=== PATIENT | male | born 1950 | race Caucasian/White ===

== ENCOUNTER 2017-01-26 11:23 | Emergency (ER) | payer MEDICARE ==
[2017-01-26] MEDS ORDERED: XYLOCAINE 1% HCL 20 ML MDV ONE (11:35)
[2017-01-26] MEDS ORDERED: BACIGUENT PACKET ONE (11:35)
[2017-01-26] MEDS ORDERED: BACIGUENT PACKET TP ONE (11:37)
[2017-01-26] MEDS ORDERED: Adacel Vial IM ONE ×2 (11:37→11:38)
[2017-01-26] MEDS ORDERED: XYLOCAINE 1% HCL 20 ML MDV IJ ONE (11:37)
--- NOTE | 2017-01-26 12:27 | ERPHSYRPT ---
- History of Present Illness Time Seen by Provider: 01/26/17 12:22 Source: patient, family Exam Limitations: no limitations Patient Subjective Stated Complaint: pt states he was cutting a potato and lacerated left ring finger. Triage Nursing Assessment: pt pink, warm, dry. lacedration noted to left ring finger tip. bleeding controlled. Physician History: Just prior to arrival the right handed 66-year-old male with his with cutting sweet potatoes and accidentally cut the tip of his left ring finger with a knife. He has no numbness or tingling. His last tetanus shot was more than 5 years ago. His past medical history is significant for hypertension. Timing/Duration: today Quality: other (lac) Severity: mild Location: hands (left ring finger) Possible Causes: other (knife) Associated Symptoms: other (lac) Allergies/Adverse Reactions: No Known Drug Allergies Allergy (Unverified 01/26/17 11:32) Home Medications: Losartan/Hydrochlorothiazide [Hyzaar 100-25 Tablet] 1 each PO DAILY 01/26/17 [ History] Hx Tetanus, Diphtheria Vaccination/Date Given: Yes (unknown) Hx Influenza Vaccination/Date Given: Yes Hx Pneumococcal Vaccination/Date Given: Yes Immunizations Up to Date: Yes - Review of Systems Constitutional: No Fever, No Chills Eyes: No Symptoms Ears, Nose, & Throat: No Symptoms Respiratory: No Cough, No Dyspnea Cardiac: No Chest Pain, No Edema, No Syncope Abdominal/Gastrointestinal: No Abdominal Pain, No Nausea, No Vomiting, No Diarrhea Genitourinary Symptoms: No Dysuria Musculoskeletal: No Back Pain, No Neck Pain Skin: Other (lac) Neurological: No Dizziness, No Focal Weakness, No Sensory Changes Psychological: No Symptoms Endocrine: No Symptoms Hematologic/Lymphatic: No Symptoms Immunological/Allergic: No Symptoms All Other Systems: Reviewed and Negative - Past Medical History Pertinent Past Medical History: Yes Cardiac History: Hypertension - Past Surgical History Past Surgical History: No - Social History Smoking Status: Current every day smoker How long have you smoked: 45 Exposure to second hand smoke: No Drug Use: none Patient Lives Alone: No - Nursing Vital Signs Nursing Vital Signs: Initial Vital Signs Temperature 97.5 F Temperature Source Oral Pulse Rate 96 Respiratory Rate 18 Blood Pressure [Right Arm] 134/82 Pain Intensity 0 - Physical Exam General Appearance: no apparent distress, alert Eye Exam: PERRL/EOMI, eyes nml inspection Ears, Nose, Throat Exam: normal ENT inspection, pharynx normal, moist mucous membranes Neck Exam: normal inspection, non-tender, supple, full range of motion Respiratory Exam: normal breath sounds, lungs clear, No respiratory distress Cardiovascular Exam: regular rate/rhythm, normal heart sounds Gastrointestinal/Abdomen Exam: soft, mass, No tenderness Rectal Exam: not done Back Exam: normal inspection, normal range of motion, No CVA tenderness, No vertebral tenderness Extremity Exam: normal inspection, normal range of motion Neurologic Exam: alert, oriented x 3, cooperative, normal mood/affect, sensation nml, No motor deficits Skin Exam: laceration (flap lac to distal left ring finger) SpO2 Interpretation: normal SpO2: 93 Oxygen Delivery: Room Air Procedures - Laceration/Wound Repair Left Distal Finger Wound Location: Left, hand (ring finger) Wound Length (cm): 2.5 Wound's Depth, Shape: superficial, flap Wound Explored: clean Irrigated: Yes Hibiclens Prep: Yes Anesthesia: digital block, 1% Lidocaine Volume Anesthetic (ccs): 10 Wound Debrided: minimal Wound Repaired With: sutures Suture Size/Type: 5-0, nylon Number of Sutures: 7 Layer Closure?: No Ordered Tests: Active Orders 24 hr Category Date Time Status Prepare for Sutures STAT Care 01/26/17 11:37 Active Sutures STAT Care 01/26/17 11:38 Active Wound Care STAT Care 01/26/17 11:37 Active Medication Summary Discontinued Medications Generic Name Dose Route Start Last Admin Trade Name Freq PRN Reason Stop Dose Admin Bacitracin 0.9 gm 01/26/17 11:37 01/26/17 11:39 Baciguent Packet TP 01/26/17 11:38 0.9 gm STAT ONE Administration Bacitracin Confirm 01/26/17 11:35 Baciguent Packet Administered 01/26/17 11:36 Dose 1 gm .ROUTE .STK-MED ONE Diphtheria/Tetanus/Acell Pertussis 0.5 ml 01/26/17 11:37 01/26/17 11:38 Adacel Vial IM 01/26/17 11:38 0.5 ml .ONCE ONE Administration Diphtheria/Tetanus/Acell Pertussis Confirm 01/26/17 11:38 Adacel Vial Administered 01/26/17 11:39 Dose 0.5 ml IM .STK-MED ONE Lidocaine HCl 5 ml 01/26/17 11:37 01/26/17 11:39 Xylocaine 1% Hcl 20 Ml Mdv IJ 01/26/17 11:38 5 ml STAT ONE Administration Lidocaine HCl Confirm 01/26/17 11:35 Xylocaine 1% Hcl 20 Ml Mdv Administered 01/26/17 11:36 Dose 5 ml .ROUTE .STK-MED ONE - Progress Progress: improved Counseled pt/family regarding: diagnosis, need for follow-up - Departure Time of Disposition: 12:26 Departure Disposition: Home Clinical Impression: Laceration Condition: Stable Critical Care Time: No Instructions: Care for a Laceration After Repair Additional Instructions: You have a laceration to the tip of her left ring finger that was closed with 7 sutures. The sutures need to be removed between 12 and 14 days. You were given a tetanus vaccination in the ER. Take Augmentin twice a day for 10 days. Prescriptions: Amoxicillin/Potassium Clav [Augmentin 875-125 Tablet] 875 mg PO BID #20 tablet
[2017-01-26 12:35] VITALS: BP 121/69; PULSE 86; O2SAT 98
== END 2017-01-26 12:34 | disposition home or self-care (01) ==
LOC: ED 11:23
PROC: 0HQGXZZ Repair Left Hand Skin, External Approach (ICD-10-PCS; principal; 2017-01-26)
DX: S61.215A Laceration without foreign body of left ring finger without damage to nail, initial encounter (principal); W26.0XXA Contact with knife, initial encounter
CPT/HCPCS: 12001; 90471; 90715; 99283; A9270-GY

== ENCOUNTER 2018-12-06 16:07 | Observation (INO) | payer MEDICARE ==
[2018-12-06] MEDS ORDERED: Sodium Chloride 0.9% 1000 ML 1,000 ML IV STA ×2 (16:28→20:01)
[2018-12-06] MEDS ORDERED: Zofran 4 MG/2 ML VIAL IV PRN (16:34)
[2018-12-06] MEDS ORDERED: TYLENOL 325 MG PO PRN (16:35)
[2018-12-06] MEDS ORDERED: Klor Con 10 MEQ PO ONE (16:45)
[2018-12-06] MEDS: Lactated Ringers 1,000 ML IV SCH (16:59)
--- NOTE | 2018-12-06 20:08 | PCM.HP ---
History of Present Illness - Chief Complaint Chief Complaint: DIAHRHEA, RENAL INSUF, HYPOKALEMIA History of Present Illness: is a 68 year old male pt of Dr. Saini with HTN and tob abuse who was admitted directly today with diarrhea,dehydration, acute renal injury, and leukocytosis. He started having diarrhea about 5d ago; had vomiting x 1, denies abdominal pain. He did have decreased urination and decreased po intake this week. He started feeling very weak and tired. He did go to on 12/04/18 and received IM dexamethasome for gastroenteritis. He started drinking pedialyte at home. He returned to today and looked ill to the [employer] so I was called and directly admitted the pt. His WBC were 16,000 with 13 bands and 73% neutrophils. Tbili 2.0. K+ 3.0. BUN 57 and Cr 1.78 for eGFR 40.5. No hx renal issues, no hx MN. He has received 1 L NS in a bolus and has fluids at 125cc /hr currently and is feeling somewhat better. As I have known the pt personally, I note that he has lost quite a bit of weight in the past year or two (used to be morbidly obese). 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 He also says that he stopped eating candy and drinking pop. He does note that he's lost more weight since this illness started. BMI today is 26.2. - Review of Systems Constitutional: Fever, Night Sweats Respiratory: Cough ("a little bit"), Short Of Breath ("a little bit" with current illness) Cardiac: No Chest Pain Abdominal/Gastrointestinal: Vomiting, Diarrhea, Appetite Changes Genitourinary Symptoms: Other (decr urination) Neurological: Dizziness (intermittently since starting his bp med) Psychological: Anxiety, No Depression, No Suicidal Ideations All Other Systems: Reviewed and Negative Medications & Allergies Home Medications: Home Medication List Losartan/Hydrochlorothiazide [Hyzaar 100-25 Tablet] 1 each PO DAILY 01/26/17 [ History Confirmed 12/06/18] Aspirin EC 81 mg [Ecotrin 81 mg] 81 mg PO DAILY 12/06/18 [History Confirmed 12/06/18] Allergies/Adverse Reactions: Allergies Allergy/AdvReac Type Severity Reaction Status Date / Time No Known Drug Allergies Allergy Unverified 01/26/17 11:32 - Past Medical History Past Medical History: Yes Neurological History: No Pertinent History ENT History: Cataracts Cardiac History: Hypertension Respiratory History: No Pertinent History Endocrine Medical History: No Pertinent History Musculoskelatal History: No Pertinent History GI Medical History: No Pertinent History History: No Pertinent History Pyscho-Social History: No Pertinent History Male Reproductive Disorders: No Pertinent History - Past Surgical History Past Surgical History: No Neuro Surgical History: No Pertinent History Cardiac History: No Pertinent History Respiratory Surgery: No Pertinent History GI Surgical History: No Pertinent History Genitourinary Surgical Hx: No Pertinent History Musculskeletal Surgical Hx: No Pertinent History Male Surgical History: No Pertinent History Other Surgical History: . - Social History Smoking Status: Current every day smoker How long have you smoked: 50 YEARS Exposure to second hand smoke: No Alcohol: Rarely, Occasionally Drug Use: none - Physical Exam Vital Signs: Vital Signs - 24 hr Temp Pulse Resp BP Pulse Ox 12/06/18 16:48 97.8 F 55 L 20 78/55 96 12/06/18 16:30 80/52 12/06/18 16:23 97.8 F 92 H 20 78/55 92 L General Appearance: no apparent distress, alert Neurologic Exam: oriented x 3, cooperative Eye Exam: eyes nml inspection Ears, Nose, Throat Exam: moist mucous membranes Neck Exam: normal inspection Respiratory Exam: normal breath sounds, lungs clear, No crackles/rales, No rhonchi, No wheezing Cardiovascular Exam: regular rate/rhythm, normal heart sounds, No murmur Gastrointestinal/Abdomen Exam: soft, normal bowel sounds, No tenderness, No distention, No mass, No guarding, No rebound Back Exam: normal inspection, No rash Extremity Exam: No pedal edema, No swelling Skin Exam: normal color, warm, dry, No rash Assessment/Plan (1) Diarrhea Current Visit: Yes Status: Acute Qualifiers: Diarrhea type: unspecified type Qualified Code(s): R19.7 - Diarrhea, unspecified Assessment & Plan: Will start pt on IV levaquin and flagyl for possible colitis. He is not having any pain, but WBC is elevated with bands present and pt is hypotensive. Code(s): R19.7 - DIARRHEA, UNSPECIFIED (2) Hypotension Current Visit: Yes Status: Acute Qualifiers: Hypotension type: other hypotension type Qualified Code(s): I95.89 - Other hypotension Assessment & Plan: due to fluid loss. Has received 1 L IV fluids - repeat. May need to repeat again. Rechecking electrolytes this evening. Code(s): I95.9 - HYPOTENSION, UNSPECIFIED (3) Leukocytosis Current Visit: Yes Status: Acute Qualifiers: Leukocytosis type: bandemia Qualified Code(s): D72.825 - Bandemia Code(s): D72.829 - ELEVATED WHITE BLOOD CELL COUNT, UNSPECIFIED (4) Acute renal injury Current Visit: Yes Status: Acute Assessment & Plan: recheck in a.m. Code(s): N17.9 - ACUTE KIDNEY FAILURE, UNSPECIFIED (5) HTN (hypertension) Current Visit: Yes Status: Acute Qualifiers: Hypertension type: essential hypertension Qualified Code(s): I10 - Essential (primary) hypertension Assessment & Plan: holding antihypertensive med Code(s): I10 - ESSENTIAL (PRIMARY) HYPERTENSION (6) Hypokalemia Current Visit: Yes Status: Acute Assessment & Plan: recheck this evening; with K+ 3.0 I did replete him orally. On telemetry. Code(s): E87.6 - HYPOKALEMIA (7) Hyperbilirubinemia Current Visit: Yes Status: Acute Assessment & Plan: recheck maira.m. Code(s): E80.6 - OTHER DISORDERS OF BILIRUBIN METABOLISM (8) Abnormal weight loss Current Visit: Yes Status: Chronic Assessment & Plan: will check tsh Code(s): R63.4 - ABNORMAL WEIGHT LOSS
[2018-12-06] MEDS ORDERED: Levofloxacin 500MG/100ML D5W 500 MG/100 ML BAG IV ONE (20:21)
[2018-12-06] MEDS: FLAGYL 500 MG IVPB 500 MG/100 ML BAG IV SCH (20:30)
[2018-12-06 21:09] LABS: Calcium 8.7 mg/dL (8.4-10.2); Creatinine 1 1.75 mg/dL (0.66-1.25); MAGNESIUM 2.8 mg/dL (1.6-2.3); Potassium 3.6 mmol/L (3.5-5.1); TSH, 3RD Generation 0.379 mIU/L (0.47-4.68)
[2018-12-07] MEDS: FLAGYL 500 MG IVPB 500 MG/100 ML BAG IV SCH ×2 (01:08→05:48)
[2018-12-07] MEDS ORDERED: Lactated Ringers 1,000 ML IV ONE (02:16)
[2018-12-07] MEDS: Lactated Ringers 1,000 ML IV SCH ×3 (02:17→20:05)
[2018-12-07 06:16] LABS: Basophil (Absolute #) 0 (0-0.4); Eosinophil % 0.1 % (0.00-5.0); Eosinophil (Absolute #) 0.01 (0-0.5); Granulocyte Absolute (ANC) 12.29 (1.4-6.9); Granulocytes % 92.9 % (36.0-66.0); Hematocrit 40.5 % (42-50); Hemoglobin 13.8 gm/dl (12.5-18.0); Lymphocyte (Absolute #) 0.27 (1.0-4.6); Mean Cell Volume 90.4 fl (78-100); Mean Corpuscular Hemoglobin 30.8 pg (26-32); Mean Corpuscular Hgb Concent. 34.1 g/dl (32-36); Mean Platelet Volume 10.4 fl (6-9.5); Monocyte (Absolute #) 0.66 (0.0-1.3); Platelet Count 228 K/mm3 (150-450); Red Blood Count 4.48 M/mm3 (4.1-5.6); Red Cell Distribution Width 14.3 % (11.5-14.0); White Blood Count 13.2 K/mm3 (4.0-10.5)
[2018-12-07 06:41] LABS: ALBUMIN 2.8 g/dL (3.5-5.0); ANION GAP 13.3 MEQ/L (5-15); BILIRUBIN,TOTAL 1.4 mg/dL (0.2-1.3); Calcium 8.6 mg/dL (8.4-10.2); Creatinine 1 1.34 mg/dL (0.66-1.25); Potassium 3.7 mmol/L (3.5-5.1); Total Protein 6.2 g/dL (6.3-8.2)
[2018-12-07 07:15] LABS: Slide Review 1 YES
[2018-12-07] MEDS ORDERED: Sodium Chloride 0.9% 500 ML 500 ML IV ONE (07:21)
--- NOTE | 2018-12-07 08:21 | XRAY ---
Indication: Cough. Comparison: None 2 views of the abdomen demonstrates scattered nonspecific nonobstructed bowel gas pattern. No focal bowel dilatation or free air. 5 mm nonobstructing left lower renal calculus and calcified splenic granulomas. Remaining solid organs are unremarkable. Osseous structures intact with moderate degenerative changes throughout the thoracolumbar spine and both hips. Single AP chest demonstrates right upper lobe consolidating airspace disease. Remaining heart and left lung unremarkable with incidental calcified granulomas. Bony thorax intact with degenerative changes. Impression: 1. Right upper lobe consolidating airspace disease. 2. Nonobstructing left renal microcalculus and evidence for old granulomatous disease.
[2018-12-07] MEDS: Klor Con 10 MEQ PO SCH (09:56)
[2018-12-07] MEDS ORDERED: Levofloxacin 500MG/100ML D5W 500 MG/100 ML BAG IV SCH ×2 (10:00→22:00)
--- NOTE | 2018-12-07 11:02 | PCM.NOTE ---
Date and Time: 12/07/18 1057 Subjective Assessment: Pt is feeling better. Sam po - would like to increase his diet. His CXR yesterday revealed RUL consolidation. - Review of Systems Constitutional: No Fever Abdominal/Gastrointestinal: No Diarrhea Objective Exam General Appearance: no apparent distress, alert Neurologic Exam: oriented x 3, cooperative Skin Exam: normal color, warm, dry, No rash Eye Exam: eyes nml inspection Respiratory Exam: normal breath sounds, rhonchi (RUL), No crackles/rales, No wheezing Cardiovascular Exam: regular rate/rhythm, normal heart sounds, No murmur Gastrointestinal/Abdomen Exam: soft, normal bowel sounds, No tenderness, No distention, No mass, No guarding, No rebound Extremity Exam: normal inspection, No pedal edema, No swelling Back Exam: normal inspection, No rash OBJECTIVE DATA Vital Signs: Vital Signs - 24 hr Temp Pulse Resp BP Pulse Ox 12/07/18 07:32 98.2 F 87 20 92/60 95 12/07/18 04:00 98.4 F 88 18 99/55 96 12/07/18 00:20 98.2 F 93 H 18 90/59 94 L 12/06/18 20:00 97.6 F 90 18 88/52 95 12/06/18 16:48 97.8 F 55 L 20 78/55 96 12/06/18 16:30 80/52 12/06/18 16:23 97.8 F 92 H 20 78/55 92 L Pain Assessment - Last Documented Pain Intensity 0 Pain Scale Used 0-10 Pain Scale Intake and Output: Intake & Output 12/04/18 12/05/18 12/06/18 12/07/18 11:59 11:59 11:59 11:59 Intake Total 4540 Output Total 550 Balance 3990 Weight 85.8 kg Lab Results: Lab Results-Last 24 Hours 12/06/18 12/07/18 12/07/18 Range/Units 20:16 05:00 05:25 WBC 13.2 H (4.0-10.5) K/mm3 RBC 4.48 (4.1-5.6) M/mm3 Hgb 13.8 (12.5-18.0) gm/dl Hct 40.5 L (42-50) % MCV 90.4 (78-100) fl MCH 30.8 (26-32) pg MCHC 34.1 (32-36) g/dl RDW 14.3 H (11.5-14.0) % Plt Count 228 (150-450) K/mm3 MPV 10.4 H (6-9.5) fl Gran % 92.9 H (36.0-66.0) % Eos # (Auto) 0.01 (0-0.5) Absolute Lymphs (auto) 0.27 L (1.0-4.6) Absolute Monos (auto) 0.66 (0.0-1.3) Lymphocytes % 2.0 L (24.0-44.0) % Monocytes % 5.0 (0.0-12.0) % Eosinophils % 0.1 (0.00-5.0) % Basophils % 0.0 (0.0-0.4) % Absolute Granulocytes 12.29 H (1.4-6.9) Basophils # 0 (0-0.4) Sodium 138 (137-145) mmol/L Potassium 3.6 (3.5-5.1) mmol/L Chloride 99 (98-107) mmol/L Carbon Dioxide 31 H (22-30) mmol/L Anion Gap 12.0 (5-15) MEQ/L BUN 64 H (9-20) mg/dL Creatinine 1.75 H (0.66-1.25) mg/dL Estimated GFR 41.3 ML/MIN Glucose 102 (74-106) mg/dL Calcium 8.7 (8.4-10.2) mg/dL Magnesium 2.8 H (1.6-2.3) mg/dL Total Bilirubin (0.2-1.3) mg/dL AST (17-59) U/L ALT (0-50) U/L Alkaline Phosphatase (38-126) U/L Serum Total Protein (6.3-8.2) g/dL Albumin (3.5-5.0) g/dL Free T4 2.33 H (0.76-1.46) ng/dL TSH 3rd Generation 0.379 L (0.47-4.68) mIU/L Slides for Path Review YES 12/07/18 Range/Units 05:25 WBC (4.0-10.5) K/mm3 RBC (4.1-5.6) M/mm3 Hgb (12.5-18.0) gm/dl Hct (42-50) % MCV (78-100) fl MCH (26-32) pg MCHC (32-36) g/dl RDW (11.5-14.0) % Plt Count (150-450) K/mm3 MPV (6-9.5) fl Gran % (36.0-66.0) % Eos # (Auto) (0-0.5) Absolute Lymphs (auto) (1.0-4.6) Absolute Monos (auto) (0.0-1.3) Lymphocytes % (24.0-44.0) % Monocytes % (0.0-12.0) % Eosinophils % (0.00-5.0) % Basophils % (0.0-0.4) % Absolute Granulocytes (1.4-6.9) Basophils # (0-0.4) Sodium 140 (137-145) mmol/L Potassium 3.7 (3.5-5.1) mmol/L Chloride 102 (98-107) mmol/L Carbon Dioxide 28 (22-30) mmol/L Anion Gap 13.3 (5-15) MEQ/L BUN 61 H (9-20) mg/dL Creatinine 1.34 H (0.66-1.25) mg/dL Estimated GFR 56.2 ML/MIN Glucose 83 (74-106) mg/dL Calcium 8.6 (8.4-10.2) mg/dL Magnesium (1.6-2.3) mg/dL Total Bilirubin 1.40 H (0.2-1.3) mg/dL AST 58 (17-59) U/L ALT 52 H (0-50) U/L Alkaline Phosphatase 89 (38-126) U/L Serum Total Protein 6.2 L (6.3-8.2) g/dL Albumin 2.8 L (3.5-5.0) g/dL Free T4 (0.76-1.46) ng/dL TSH 3rd Generation (0.47-4.68) mIU/L Slides for Path Review Radiology Exams: Radiology Procedures Category Date Time Status OBSTR/ACUTE ABDOMEN SERIES Routine Exams 12/06/18 06:00 Completed Assessment/Plan (1) Pneumonia Current Visit: Yes Status: Acute Qualifiers: Pneumonia type: due to unspecified organism Laterality: right Lung location: upper lobe of lung Qualified Code(s): J18.1 - Lobar pneumonia, unspecified organism Assessment & Plan: On levaquin and flagyl day #2. Since there is now an obvious reason for the leukocytosis, will discontinue the flagyl and continue the levaquin. Code(s): J18.9 - PNEUMONIA, UNSPECIFIED ORGANISM (2) Hypotension Current Visit: Yes Status: Acute Qualifiers: Hypotension type: other hypotension type Qualified Code(s): I95.89 - Other hypotension Assessment & Plan: Much better. BP in the 90s systolic. Possibly pt's recent weight loss could negate the need for antihypertensives. Will continue to hold BP med for now. Code(s): I95.9 - HYPOTENSION, UNSPECIFIED (3) Diarrhea Current Visit: Yes Status: Resolved Qualifiers: Diarrhea type: unspecified type Qualified Code(s): R19.7 - Diarrhea, unspecified Code(s): R19.7 - DIARRHEA, UNSPECIFIED (4) Leukocytosis Current Visit: Yes Status: Acute Qualifiers: Leukocytosis type: bandemia Qualified Code(s): D72.825 - Bandemia Assessment & Plan: improved from 16.8 to 13.2 this morning, with no bands (previously had 13 bands) . Code(s): D72.829 - ELEVATED WHITE BLOOD CELL COUNT, UNSPECIFIED (5) Acute renal injury Current Visit: Yes Status: Acute Assessment & Plan: Improved; eGFR no 56.2, from 41.3 yesterday. Continue IV fluids. States he is urinating well now. Code(s): N17.9 - ACUTE KIDNEY FAILURE, UNSPECIFIED (6) HTN (hypertension) Current Visit: Yes Status: Chronic Qualifiers: Hypertension type: essential hypertension Qualified Code(s): I10 - Essential (primary) hypertension Code(s): I10 - ESSENTIAL (PRIMARY) HYPERTENSION (7) Hypokalemia Current Visit: Yes Status: Resolved Code(s): E87.6 - HYPOKALEMIA (8) Hyperbilirubinemia Current Visit: Yes Status: Acute Assessment & Plan: Improved - was 2.0 yesterday, 1.4 today. Code(s): E80.6 - OTHER DISORDERS OF BILIRUBIN METABOLISM (9) Abnormal weight loss Current Visit: Yes Status: Chronic Assessment & Plan: TSh is low - checking free T4 and total T3. However, may be affected by his acute illness. Code(s): R63.4 - ABNORMAL WEIGHT LOSS
[2018-12-07] MEDS: ENOXAPARIN SODIUM SQ SCH (12:54)
[2018-12-07] MEDS ORDERED: Levofloxacin 500MG/100ML D5W 500 MG/100 ML BAG IV ONE (19:56)
[2018-12-08] MEDS: Lactated Ringers 1,000 ML IV SCH (05:04)
[2018-12-08 06:01] LABS: Hematocrit 39.6 % (42-50); Hemoglobin 13.1 gm/dl (12.5-18.0); Mean Cell Volume 91.2 fl (78-100); Mean Corpuscular Hemoglobin 30.2 pg (26-32); Mean Corpuscular Hgb Concent. 33.1 g/dl (32-36); Mean Platelet Volume 10.3 fl (6-9.5); Platelet Count 253 K/mm3 (150-450); Red Blood Count 4.34 M/mm3 (4.1-5.6); Red Cell Distribution Width 14.6 % (11.5-14.0); White Blood Count 8.4 K/mm3 (4.0-10.5)
[2018-12-08 06:38] LABS: ALBUMIN 2.5 g/dL (3.5-5.0); ALKALINE PHOSPHATASE 93 U/L (38-126); ANION GAP 10.5 MEQ/L (5-15); BLOOD UREA NITROGEN 41 mg/dL (9-20); CHLORIDE 103 mmol/L (98-107); Calcium 8.6 mg/dL (8.4-10.2); Carbon Dioxide 32 mmol/L (22-30); Creatinine 1 0.97 mg/dL (0.66-1.25); Glucose 79 mg/dL (74-106); Potassium 4.1 mmol/L (3.5-5.1); SGOT/AST 74 U/L (17-59); SGPT/ALT 65 U/L (0-50); SODIUM 141 mmol/L (137-145); Total Protein 5.8 g/dL (6.3-8.2)
[2018-12-08 06:44] LABS: Platelet Estimate NORMAL (NORMAL); Total Cells Counted 100
[2018-12-08 06:51] LABS: Lymphocytes 4 % (24-44); Neutrophils 89 % (36.-66.)
[2018-12-08 06:52] LABS: BAND 3 % (0.0-2.0); Eosinophil 1 % (0.00-3.0); Monocyte 3 % (0.0-12.0); Toxic Granulation 1+
[2018-12-08 06:53] LABS: ANISOCYTOSIS 1+
[2018-12-08 08:19] VITALS: O2SAT 94
[2018-12-08] MEDS: Klor Con 10 MEQ PO SCH (09:32)
[2018-12-08] MEDS: ENOXAPARIN SODIUM SQ SCH (09:33)
--- NOTE | 2018-12-08 12:57 | PCM.DS ---
Discharge Summary Date of Admission: 12/06/18 16:07 Admitting Physician: BRYN BROWN Primary Care Provider: LICO LY Allergies Allergies No Known Drug Allergies Allergy (Unverified 01/26/17 11:32) Hospital Summary - Hospital Course Hospital Course: Last Vital Signs Temp 97.8 F 12/08/18 08:00 Pulse 69 12/08/18 08:00 Resp 18 12/08/18 08:00 BP 107/64 12/08/18 08:00 Pulse Ox 94 L 12/08/18 08:00 Allergies No Known Drug Allergies Allergy (Unverified 01/26/17 11:32) Active Medications Acetaminophen (Tylenol 325 Mg) 650 mg PO Q4H PRN PRN PRN Reason: PAIN AND/OR FEVER Stop: 01/05/19 16:34 Enoxaparin Sodium (Enoxaparin Sodium) 40 mg SQ DAILY WALE Stop: 01/06/19 11:59 Last Admin: 12/08/18 09:33 Dose: 40 mg Lactated Ringer's (Lactated Ringers) 1,000 mls @ 125 mls/hr IV .Q8H WALE Stop: 01/05/19 16:29 Last Admin: 12/08/18 05:04 Dose: 125 mls/hr Levofloxacin/Dextrose (Levofloxacin 500mg/100ml D5w) 500 mg in 100 mls @ 100 mls/hr IV QPM WALE Stop: 01/06/19 09:59 Last Admin: 12/07/18 21:23 Dose: 100 mls/hr Potassium Chloride (Klor Con 10 Meq) 20 meq PO DAILY WALE Stop: 01/06/19 09:59 Last Admin: 12/08/18 09:32 Dose: 20 meq Intake & Output 12/08/18 12/09/18 11:59 11:59 Intake Total 3560 Output Total 2850 Balance 710 Weight 91.1 kg Lab Tests 12/08/18 12/08/18 05:06 05:06 WBC 8.4 RBC 4.34 Hgb 13.1 Hct 39.6 L MCV 91.2 MCH 30.2 MCHC 33.1 RDW 14.6 H Plt Count 253 MPV 10.3 H Segmented Neutrophils 89 H Band Neutrophils 3 H Lymphocytes (Manual) 4 L Monocytes (Manual) 3 Eosinophils (Manual) 1 Atypical Lymphocytes Toxic Granulation 1+ Platelet Estimate NORMAL RBC Morphology ABNORMAL Anisocytosis 1+ Sodium 141 Potassium 4.1 Chloride 103 Carbon Dioxide 32 H Anion Gap 10.5 BUN 41 H Creatinine 0.97 Estimated GFR > 60.0 Glucose 79 Calcium 8.6 Total Bilirubin 1.10 AST 74 H ALT 65 H Alkaline Phosphatase 93 Serum Total Protein 5.8 L Albumin 2.5 L Microbiology 12/06/18 16:39 Blood Blood Culture - Preliminary NO GROWTH TO DATE 12/06/18 14:30 Blood Blood Culture - Preliminary NO GROWTH TO DATE - Vitals & Intake/Output Vital Signs: Vital Signs Temperature 97.8 F 12/08/18 08:00 Pulse Rate 69 12/08/18 08:00 Respiratory Rate 18 12/08/18 08:00 Blood Pressure 107/64 12/08/18 08:00 O2 Sat by Pulse Oximetry 94 L 12/08/18 08:00 Intake & Output: Intake & Output 12/06/18 12/07/18 12/08/18 12/09/18 11:59 11:59 11:59 11:59 Intake Total 4660 3560 Output Total 950 2850 Balance 3710 710 Weight 85.8 kg 91.1 kg - Lab Result Diagrams: 12/08/18 05:06 12/08/18 05:06 Lab Results-Last 24 Hrs: Lab Results-Last 24 Hours 12/08/18 12/08/18 Range/Units 05:06 05:06 WBC 8.4 (4.0-10.5) K/mm3 RBC 4.34 (4.1-5.6) M/mm3 Hgb 13.1 (12.5-18.0) gm/dl Hct 39.6 L (42-50) % MCV 91.2 (78-100) fl MCH 30.2 (26-32) pg MCHC 33.1 (32-36) g/dl RDW 14.6 H (11.5-14.0) % Plt Count 253 (150-450) K/mm3 MPV 10.3 H (6-9.5) fl Segmented Neutrophils 89 H (36.-66.) % Band Neutrophils 3 H (0.0-2.0) % Lymphocytes (Manual) 4 L (24-44) % Monocytes (Manual) 3 (0.0-12.0) % Eosinophils (Manual) 1 (0.00-3.0) % Atypical Lymphocytes % Toxic Granulation 1+ Platelet Estimate NORMAL (NORMAL) RBC Morphology ABNORMAL Anisocytosis 1+ Sodium 141 (137-145) mmol/L Potassium 4.1 (3.5-5.1) mmol/L Chloride 103 (98-107) mmol/L Carbon Dioxide 32 H (22-30) mmol/L Anion Gap 10.5 (5-15) MEQ/L BUN 41 H (9-20) mg/dL Creatinine 0.97 (0.66-1.25) mg/dL Estimated GFR > 60.0 ML/MIN Glucose 79 (74-106) mg/dL Calcium 8.6 (8.4-10.2) mg/dL Total Bilirubin 1.10 (0.2-1.3) mg/dL AST 74 H (17-59) U/L ALT 65 H (0-50) U/L Alkaline Phosphatase 93 (38-126) U/L Serum Total Protein 5.8 L (6.3-8.2) g/dL Albumin 2.5 L (3.5-5.0) g/dL Micro Results-Entire Visit: Microbiology 12/06/18 16:39 Blood Culture - Preliminary Blood NO GROWTH TO DATE 12/06/18 14:30 Blood Culture - Preliminary Blood NO GROWTH TO DATE Discharge Exam General Appearance: no apparent distress, alert Neurologic Exam: alert, oriented x 3, cooperative, normal mood/affect, nml cerebellar function, sensation nml, No motor deficits Skin Exam: normal color, warm, dry Eye Exam: PERRL, EOMI, eyes nml inspection Ears, Nose, Throat Exam: normal ENT inspection, pharynx normal, moist mucous membranes Neck Exam: normal inspection, non-tender, supple, full range of motion Respiratory Exam: diminished breath sounds, rhonchi, No respiratory distress Cardiovascular Exam: regular rate/rhythm, normal heart sounds Gastrointestinal/Abdomen Exam: soft, No tenderness, No mass Extremity Exam: normal inspection, normal range of motion Back Exam: normal inspection, normal range of motion, No CVA tenderness, No vertebral tenderness Male Genitalia Exam: deferred Rectal Exam: deferred Final Diagnosis/Problem List - Final Discharge Diagnosis/Problem (1) Pneumonia Current Visit: Yes Status: Acute Assessment & Plan: Last Vital Signs Temp 97.8 F 12/08/18 08:00 Pulse 69 12/08/18 08:00 Resp 18 12/08/18 08:00 BP 107/64 12/08/18 08:00 Pulse Ox 94 L 12/08/18 08:00 Allergies No Known Drug Allergies Allergy (Unverified 01/26/17 11:32) Active Medications Acetaminophen (Tylenol 325 Mg) 650 mg PO Q4H PRN PRN PRN Reason: PAIN AND/OR FEVER Stop: 01/05/19 16:34 Enoxaparin Sodium (Enoxaparin Sodium) 40 mg SQ DAILY WALE Stop: 01/06/19 11:59 Last Admin: 12/08/18 09:33 Dose: 40 mg Lactated Ringer's (Lactated Ringers) 1,000 mls @ 125 mls/hr IV .Q8H WALE Stop: 01/05/19 16:29 Last Admin: 12/08/18 05:04 Dose: 125 mls/hr Levofloxacin/Dextrose (Levofloxacin 500mg/100ml D5w) 500 mg in 100 mls @ 100 mls/hr IV QPM WALE Stop: 01/06/19 09:59 Last Admin: 12/07/18 21:23 Dose: 100 mls/hr Potassium Chloride (Klor Con 10 Meq) 20 meq PO DAILY WALE Stop: 01/06/19 09:59 Last Admin: 12/08/18 09:32 Dose: 20 meq Intake & Output 12/08/18 12/09/18 11:59 11:59 Intake Total 3560 Output Total 2850 Balance 710 Weight 91.1 kg Lab Tests 12/08/18 12/08/18 05:06 05:06 WBC 8.4 RBC 4.34 Hgb 13.1 Hct 39.6 L MCV 91.2 MCH 30.2 MCHC 33.1 RDW 14.6 H Plt Count 253 MPV 10.3 H Segmented Neutrophils 89 H Band Neutrophils 3 H Lymphocytes (Manual) 4 L Monocytes (Manual) 3 Eosinophils (Manual) 1 Atypical Lymphocytes Toxic Granulation 1+ Platelet Estimate NORMAL RBC Morphology ABNORMAL Anisocytosis 1+ Sodium 141 Potassium 4.1 Chloride 103 Carbon Dioxide 32 H Anion Gap 10.5 BUN 41 H Creatinine 0.97 Estimated GFR > 60.0 Glucose 79 Calcium 8.6 Total Bilirubin 1.10 AST 74 H ALT 65 H Alkaline Phosphatase 93 Serum Total Protein 5.8 L Albumin 2.5 L Microbiology 12/06/18 16:39 Blood Blood Culture - Preliminary NO GROWTH TO DATE 12/06/18 14:30 Blood Blood Culture - Preliminary NO GROWTH TO DATE Code(s): J18.9 - PNEUMONIA, UNSPECIFIED ORGANISM (2) HTN (hypertension) Current Visit: Yes Status: Chronic Code(s): I10 - ESSENTIAL (PRIMARY) HYPERTENSION (3) Diarrhea Current Visit: Yes Status: Resolved Code(s): R19.7 - DIARRHEA, UNSPECIFIED (4) Hypokalemia Current Visit: Yes Status: Resolved Code(s): E87.6 - HYPOKALEMIA - Discharge Discharge Date: 12/08/18 Disposition: Home, Self-Care Condition: Stable Prescriptions: No Action Losartan/Hydrochlorothiazide [Hyzaar 100-25 Tablet] 1 each PO DAILY Aspirin EC 81 mg [Ecotrin 81 mg] 81 mg PO DAILY Follow up with: LICO LY MD [Primary Care Provider] - 12/15/18 10:15 am
[2018-12-08 13:53] VITALS: BP 118/70; PULSE 78
== END 2018-12-08 13:51 | disposition home or self-care (01) ==
LOC: MED SURG 16:07
PROVIDERS: ADMIT Family Medicine; ATTEND General Practice
DX: J18.9 Pneumonia, unspecified organism (principal); I10 Essential (primary) hypertension; R19.7 Diarrhea, unspecified; E87.6 Hypokalemia; E86.0 Dehydration; F17.200 Nicotine dependence, unspecified, uncomplicated; N17.9 Acute kidney failure, unspecified; D72.829 Elevated white blood cell count, unspecified; Z79.899 Other long term (current) drug therapy; R42 Dizziness and giddiness; I95.89 Other hypotension; E80.6 Other disorders of bilirubin metabolism; R63.4 Abnormal weight loss
CPT/HCPCS: 36415; 74022; 80048; 80053; 83735; 84439; 84443; 84480; 85025; 87040; 93268; G0378; J1650; J1956; A9270-GY

== ENCOUNTER 2021-11-29 03:24 | Emergency (ER) | payer MEDICARE ==
--- NOTE | 2021-11-29 03:54 | ERPHSYRPT ---
- History of Present Illness Historian: patient Exam Limitations: no limitations Patient Subjective Stated Complaint: stomach ache Triage Nursing Assessment: pt c/o a stomach ache which occured around 2330 after eating some cookies. Pt has nausea but not vomiting. Abd is firm with hyperactive bs x4 quad, nontender. Pt had large bm at 0200. Pt afebrile. Pt denies any c/p or sob. Timing/Duration: yesterday Activities at Onset: none Quality: sharpness, stabbing Abdominal Pain Onset Location: generalized abdomen Pain Radiation: no radiation Severity of Pain-Max: moderate Severity of Pain-Current: moderate Modifying Factors: Improves With: nothing Associated Symptoms: denies symptoms Previous symptoms: no prior history Hx Tetanus, Diphtheria Vaccination/Date Given: Yes Hx Influenza Vaccination/Date Given: Yes Hx Pneumococcal Vaccination/Date Given: Yes Immunizations Up to Date: Yes - History of Present Illness Time Seen by Provider: 11/29/21 03:50 Physician History: This is a 71 y/o white male patient of Dr. Ly who presents with abd pain onset relatively sudden mid abd at 2330 last pm. he had eaten cookies just prior to pain. pain is sharp and nonradiating. no n/v/d. denies cp and denies sob. never had anything like this before. no prior abd surgeries. pt had a large bm at 0200 this am without relief of pain. patient has never had a colonscopy. denies changes in his bms recently. current qd smoker of cigarettes. 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: [employer] - Vaccination Dates Date of 2cond Vaccination (if applicable): 2/27/21 - Review of Systems Constitutional: No Symptoms Eyes: No Symptoms Ears, Nose, & Throat: No Symptoms Respiratory: No Symptoms Cardiac: No Symptoms Abdominal/Gastrointestinal: Abdominal Pain Genitourinary Symptoms: No Symptoms Musculoskeletal: No Symptoms Skin: No Symptoms Neurological: No Symptoms Psychological: No Symptoms Endocrine: No Symptoms Hematologic/Lymphatic: No Symptoms Immunological/Allergic: No Symptoms - Past Medical History Pertinent Past Medical History: Yes Neurological History: No Pertinent History ENT History: No Pertinent History Cardiac History: Hypertension Respiratory History: No Pertinent History Endocrine Medical History: No Pertinent History Musculoskeletal History: No Pertinent History GI Medical History: No Pertinent History History: No Pertinent History Psycho-Social History: No Pertinent History Male Reproductive Disorders: No Pertinent History - Past Surgical History Past Surgical History: Yes Neuro Surgical History: No Pertinent History Cardiac: No Pertinent History Respiratory: No Pertinent History Gastrointestinal: No Pertinent History Genitourinary: No Pertinent History Musculoskeletal: No Pertinent History Male Surgical History: No Pertinent History Other Surgical History: . - Social History Smoking Status: Current every day smoker How long have you smoked: 50 yrs Exposure to second hand smoke: No Drug Use: none Patient Lives Alone: Yes - Physical Exam General Appearance: no apparent distress, alert, anxiety Eye Exam: PERRL/EOMI, eyes nml inspection Ears, Nose, Throat Exam: normal ENT inspection, moist mucous membranes Neck Exam: normal inspection, non-tender, supple, full range of motion Respiratory Exam: normal breath sounds, lungs clear, No chest tenderness, No respiratory distress Cardiovascular Exam: regular rate/rhythm, normal heart sounds, normal peripheral pulses Gastrointestinal/Abdomen Exam: soft, normal bowel sounds, tenderness, guarding, No pulsatile mass, No rebound Rectal Exam: not done Back Exam: normal inspection, normal range of motion, No CVA tenderness Extremity Exam: normal inspection, normal range of motion, pelvis stable Neurologic Exam: alert, oriented x 3, cooperative, 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 nml as tested, normal mood/affect, nml cerebellar function, nml station & gait, sensation nml Skin Exam: normal color, warm, dry Lymphatic Exam: No adenopathy SpO2 Interpretation: normal SpO2: 96 O2 Delivery: Room Air - Nursing Vital Signs Nursing Vital Signs: Initial Vital Signs Temperature 97.3 F 11/29/21 03:41 Pulse Rate 66 11/29/21 03:41 Respiratory Rate 18 11/29/21 03:41 Blood Pressure 151/84 11/29/21 03:41 O2 Sat by Pulse Oximetry 96 11/29/21 03:41 Pain Scale Pain Intensity 0 - Course Nursing assessment & vital signs reviewed: Yes EKG Interpreted by Me: RATE (67), Sinus Rhythm, NORMAL AXIS, Right Bundle Branch Block, NORMAL ST-T, Other (prolonged pr interval) Ordered Tests: Active Orders 24 hr Category Date Time Status IV Insertion STAT Care 11/29/21 03:54 Active ABDOMEN AND PELVIS W/0 CONTRAS [CT] Stat Exams 11/29/21 03:55 Taken Ultrasound Gallbladder [GALLBLADDER] [US] Stat Exams 11/29/21 07:33 Ordered AMYLASE Stat Lab 11/29/21 04:01 Completed CBC W DIFF Stat Lab 11/29/21 04:01 Completed CMP Stat Lab 11/29/21 04:01 Completed CULTURE,URINE Stat Lab 11/29/21 05:37 Received LIPASE Stat Lab 11/29/21 04:01 Completed Lactic Acid Stat Lab 11/29/21 04:11 Completed Lactic Acid Stat Lab 11/29/21 06:17 Completed Medication Summary Discontinued Medications Generic Name Dose Route Start Last Admin Trade Name Freq PRN Reason Stop Dose Admin Hydromorphone HCl 1 mg 11/29/21 04:14 11/29/21 04:16 Hydromorphone 1 Mg/1ml Inj 1 Mg/Ml Syringe IV 11/29/21 04:15 1 mg STAT ONE Administration Hydromorphone HCl Confirm 11/29/21 04:15 Hydromorphone 1 Mg/1ml Inj 1 Mg/Ml Syringe Administered 11/29/21 04:16 Dose 1 mg .ROUTE .STK-MED ONE Sodium Chloride 1,000 mls @ 999 mls/hr 11/29/21 04:44 11/29/21 05:57 Sodium Chloride 0.9% 1000 Ml IV 11/29/21 05:44 Infused .Q1H1M STA Infusion Sodium Chloride Confirm 11/29/21 04:54 Sodium Chloride 0.9% 1000 Ml Administered 11/29/21 04:55 Dose 1,000 mls @ ud .ROUTE .STK-MED ONE Ondansetron HCl 4 mg 11/29/21 03:54 11/29/21 04:00 Ondansetron Hcl 4 Mg/2 Ml Vial IV 11/29/21 03:55 4 mg STAT ONE Administration Ondansetron HCl Confirm 11/29/21 03:59 Ondansetron Hcl 4 Mg/2 Ml Vial Administered 11/29/21 04:00 Dose 4 mg .ROUTE .K-MED ONE Lab/Rad Data: Laboratory Result Diagrams 11/29/21 04:01 11/29/21 04:01 Laboratory Results 11/29/21 11/29/21 11/29/21 Range/Units 06:17 05:37 04:11 WBC (4.0-10.5) K/mm3 RBC (4.1-5.6) M/mm3 Hgb (12.5-18.0) gm/dl Hct (42-50) % MCV (78-100) fl MCH (26-32) pg MCHC (32-36) g/dl RDW (11.5-14.0) % Plt Count (150-450) K/mm3 MPV (7.5-11.0) fl Gran % (36.0-66.0) % Eos # (Auto) (0-0.5) Absolute Lymphs (auto) (1.0-4.6) Absolute Monos (auto) (0.0-1.3) Lymphocytes % (24.0-44.0) % Monocytes % (0.0-12.0) % Eosinophils % (0.00-5.0) % Basophils % (0.0-0.4) % Absolute Granulocytes (1.4-6.9) Basophils # (0-0.4) Sodium (137-145) mmol/L Potassium (3.5-5.1) mmol/L Chloride (98-107) mmol/L Carbon Dioxide (22-30) mmol/L Anion Gap (5-15) MEQ/L BUN (9-20) mg/dL Creatinine (0.66-1.25) mg/dL Estimated GFR ML/MIN Glucose (74-106) mg/dL Lactic Acid 1.7 2.3 H (0.4-2.0) Calcium (8.4-10.2) mg/dL Total Bilirubin (0.2-1.3) mg/dL AST (17-59) U/L ALT (0-50) U/L Alkaline Phosphatase (38-126) U/L Serum Total Protein (6.3-8.2) g/dL Albumin (3.5-5.0) g/dL Amylase (30-110) U/L Lipase (23-300) U/L Urinalys Dipstick Clnc MAIN LAB Urine Color Cancelled Urine Appearance Cancelled Urine pH Cancelled Ur Specific Deridder Cancelled Urine Protein Cancelled POC Urine Protein Conf TRACE (Negative) Urine Ketones Cancelled Urine Blood Cancelled Urine Nitrite Cancelled Urine Bilirubin Cancelled Urine Urobilinogen Cancelled Ur Leukocyte Esterase Cancelled Urine Leukocytes NEGATIVE (NEGATIVE) Urine WBC (Auto) NONE (0-5) /HPF Urine RBC (Auto) 3-5 (0-2) /HPF U Epithel Cells (Auto) NONE (FEW) /HPF Urine Bacteria (Auto) RARE (NEGATIVE) /HPF Urine RBC TRACE-INTACT (0-5) Robert/ul U Non-Squamous Epi Cells Cancelled Urine Mucus (Auto) SLIGHT (NEGATIVE) /HPF Ur Culture Indicated? YES Urine Culture Reflexed Cancelled Urine Glucose NEGATIVE (NEGATIVE) mg/dL 11/29/21 11/29/21 Range/Units 04:01 04:01 WBC 6.5 (4.0-10.5) K/mm3 RBC 4.45 (4.1-5.6) M/mm3 Hgb 14.1 (12.5-18.0) gm/dl Hct 42.2 (42-50) % MCV 94.8 (78-100) fl MCH 31.7 (26-32) pg MCHC 33.4 (32-36) g/dl RDW 13.0 (11.5-14.0) % Plt Count 217 (150-450) K/mm3 MPV 9.6 (7.5-11.0) fl Gran % 82.3 H (36.0-66.0) % Eos # (Auto) 0.11 (0-0.5) Absolute Lymphs (auto) 0.62 L (1.0-4.6) Absolute Monos (auto) 0.41 (0.0-1.3) Lymphocytes % 9.6 L (24.0-44.0) % Monocytes % 6.4 (0.0-12.0) % Eosinophils % 1.7 (0.00-5.0) % Basophils % 0.0 (0.0-0.4) % Absolute Granulocytes 5.31 (1.4-6.9) Basophils # 0 (0-0.4) Sodium 139 (137-145) mmol/L Potassium 3.3 L (3.5-5.1) mmol/L Chloride 100 (98-107) mmol/L Carbon Dioxide 30 (22-30) mmol/L Anion Gap 12.4 (5-15) MEQ/L BUN 15 (9-20) mg/dL Creatinine 0.70 (0.66-1.25) mg/dL Estimated GFR > 60.0 ML/MIN Glucose 174 H (74-106) mg/dL Lactic Acid (0.4-2.0) Calcium 8.8 (8.4-10.2) mg/dL Total Bilirubin 0.50 (0.2-1.3) mg/dL AST 23 (17-59) U/L ALT 23 (0-50) U/L Alkaline Phosphatase 89 (38-126) U/L Serum Total Protein 6.8 (6.3-8.2) g/dL Albumin 3.8 (3.5-5.0) g/dL Amylase 46 (30-110) U/L Lipase 67 (23-300) U/L Urinalys Dipstick Clnc Urine Color Urine Appearance Urine pH Ur Specific Deridder Urine Protein POC Urine Protein Conf (Negative) Urine Ketones Urine Blood Urine Nitrite Urine Bilirubin Urine Urobilinogen Ur Leukocyte Esterase Urine Leukocytes (NEGATIVE) Urine WBC (Auto) (0-5) /HPF Urine RBC (Auto) (0-2) /HPF U Epithel Cells (Auto) (FEW) /HPF Urine Bacteria (Auto) (NEGATIVE) /HPF Urine RBC (0-5) Robert/ul U Non-Squamous Epi Cells Urine Mucus (Auto) (NEGATIVE) /HPF Ur Culture Indicated? Urine Culture Reflexed Urine Glucose (NEGATIVE) mg/dL - Progress Progress: improved, re-examined Counseled pt/family regarding: lab results, diagnosis, need for follow-up - Progress Progress Note: 11/29/21 06:59 ct abd/pelvis pending. virtual/nighthawk backed up. transfer of care to dr. kumar at shift change. he accepts pt. he will make final disposition after he evaluates ct results (JULIAN CHAMBERS) Patient reassessed. No active pain. Patient appears comfortable. CT scan reveals bilateral adrenal masses a renal mass that will require follow-up ultrasound. Nephrolithiasis and diverticulosis. No indication for further work-up at this time. Right upper quadrant ultrasound shows cholelithiasis. No cholecystitis. I observe the CAT scan personally. It appears to have excessive stool. Patient will try [id number] laxatives for the next day or 2. Increase water intake. Okjn-fyt-[id number] analgesics as needed. Patient agrees to follow-up with his primary care doctor within 48 hours for evaluation. He voices no other complaints or concerns at this time. Hypokalemia, potassium replaced orally Portions of this note were created with voice recognition technology. There may be grammatical, spelling, punctuation or sound alike errors 11/29/21 08:09 (CAITLYN KUMAR) - Departure Departure Disposition: Home Critical Care Time: No - Departure Clinical Impression: Abdominal pain, Cholelithiasis, Hydropic gallbladder, Left adrenal mass, Right adrenal mass, Renal mass, Nephrolithiasis, Diverticulosis, Hypokalemia Condition: Stable Referrals: LICO LY MD [Primary Care Provider] - Follow up/PCP as directed Additional Instructions: Please follow-up with your primary care doctor within 48 hours for reevaluation. You will require an outpatient ultrasound to follow-up on your kidney mass as well as your adrenal masses. Discharge/Care Plan APRIL CONTEH was seen on 11/29/21 in the Emergency Room. The patient was counseled regarding Diagnosis,Lab results, Imaging studies, need for follow up and when to return to the Emergency Room. Prescriptions given: Discharge Note I have spoken with the patient and/or caregivers. I have explained the patient's condition, diagnosis and treatment plan based on the information available to me at this time. I have answered the patient's and/or caregiver's questions and addressed any concerns. The patient and/or caregivers have as good understanding of the patient's diagnosis, condition and treatment plan as can be expected at this point. The vital signs have been stable. The patient's condition is stable and appropriate for discharge from the emergency department. The patient will pursue further outpatient evaluation with the primary care physician or other designated or consulting physician as outlined in the discharge instructions. The patient and/or caregivers are agreeable to this plan of care and follow-up instructions have been explained in detail. The patient and/or caregivers have received these instruction. The patient/and or caregivers are aware that any significant change in condition or worsening of symptoms should prompt an immediate return to this or the closest emergency department or call 911.
[2021-11-29] MEDS ORDERED: Zofran 4 MG/2 ML VIAL ONE (03:59)
[2021-11-29] MEDS: Zofran 4 MG/2 ML VIAL IV ONE (04:00)
[2021-11-29 04:04] LABS: Absolute Neutrophil Ct (ANC) 5.31 (1.4-6.9); Basophil (Absolute #) 0 (0-0.4); Eosinophil % 1.7 % (0.00-5.0); Eosinophil (Absolute #) 0.11 (0-0.5); Hematocrit 42.2 % (42-50); Hemoglobin 14.1 gm/dl (12.5-18.0); Lymphocyte (Absolute #) 0.62 (1.0-4.6); Lymphocytes % 9.6 % (24.0-44.0); Mean Cell Volume 94.8 fl (78-100); Mean Corpuscular Hemoglobin 31.7 pg (26-32); Mean Corpuscular Hgb Concent. 33.4 g/dl (32-36); Mean Platelet Volume 9.6 fl (7.5-11.0); Monocyte (Absolute #) 0.41 (0.0-1.3); Monocytes % 6.4 % (0.0-12.0); Neutrophil % 82.3 % (36.0-66.0); Platelet Count 217 K/mm3 (150-450); Red Blood Count 4.45 M/mm3 (4.1-5.6); White Blood Count 6.5 K/mm3 (4.0-10.5)
[2021-11-29] MEDS ORDERED: Hydromorphone 1 mg/ml Injection ONE (04:15)
[2021-11-29] MEDS: Hydromorphone 1 mg/ml Injection IV ONE (04:16)
[2021-11-29 04:20] LABS: ALBUMIN 3.8 g/dL (3.5-5.0); ALKALINE PHOSPHATASE 89 U/L (38-126); AMYLASE 46 U/L (30-110); ANION GAP 12.4 MEQ/L (5-15); BLOOD UREA NITROGEN 15 mg/dL (9-20); CHLORIDE 100 mmol/L (98-107); Calcium 8.8 mg/dL (8.4-10.2); Carbon Dioxide 30 mmol/L (22-30); EST GLOMERULAR FILTRATION RATE > 60.0 ML/MIN; Glucose 174 mg/dL (74-106); LIPASE 67 U/L (23-300); Potassium 3.3 mmol/L (3.5-5.1); SGOT/AST 23 U/L (17-59); SGPT/ALT 23 U/L (0-50); SODIUM 139 mmol/L (137-145); Total Protein 6.8 g/dL (6.3-8.2)
[2021-11-29] MEDS ORDERED: Sodium Chloride 0.9% 1000 ML 1,000 ML ONE (04:54)
[2021-11-29] MEDS: Sodium Chloride 0.9% 1000 ML 1,000 ML IV STA (04:54)
[2021-11-29 06:07] LABS: Appearance CLEAR (CLEAR); Bilirubin NEGATIVE (NEGATIVE); Glucose NEGATIVE (NEGATIVE); Ketones NEGATIVE (NEGATIVE); RBC TRACE-INTACT Ery/ul (0-5); Specific Gravity >=1.030 (1.005-1.025)
[2021-11-29 06:08] LABS: Dipstick done @ ? MAIN LAB; Nitrite NEGATIVE (NEGATIVE); Protein,Urine Dip TRACE (Negative); Urobilinogen 0.2 mg/dL (0-1)
[2021-11-29 06:14] LABS: Bacteria RARE /HPF (NEGATIVE); Mucus SLIGHT /HPF (NEGATIVE)
[2021-11-29 06:15] LABS: Urine Cultured Indicated? YES
[2021-11-29 07:08] VITALS: BP 146/88
[2021-11-29] MEDS ORDERED: Klor Con 10 MEQ PO ONE (08:13)
[2021-11-29] MEDS: Klor Con 10 MEQ PO ONE (08:14)
[2021-11-29 08:15] VITALS: PULSE 70; O2SAT 95
--- NOTE | 2021-11-29 08:39 | XRAY ---
Indication: Abdomen pain and nausea. Possible food poisoning. History of prostate cancer. Multiple contiguous axial images obtained through the abdomen and pelvis without contrast. Comparison: January 25, 2021. Lung bases again demonstrates minimal subsegmental atelectasis/scarring. No infiltrate or effusion. Heart not enlarged. Stable small hiatal hernia. Noncontrasted stomach and bowel loops remain nonobstructed with normal appendix. Again scattered descending and sigmoid diverticulosis without diverticulitis. Gallbladder mildly distended with stable 1.6 cm gallstone. Stable nonobstructing micro-calculus in each kidney, left renal cysts, enlarged prostate gland with new radiation seeds, and hepatic/splenic calcified granulomas. No free fluid/air. Remaining liver, gallbladder, pancreas, spleen, adrenal glands, kidneys, ureters, and bladder are unremarkable for noncontrast exam. Again minimal aortoiliac calcifications without AAA. Osseous structures intact again with osteopenia and flowing osteophytes throughout the spine. Impression: 1. Mildly distended gallbladder with stable 1.6 cm gallstone. 2. Again chronic features including small lateral hernia, colonic diverticulosis, nonobstructing bilateral renal micro-calculus, left renal cysts, chronic bony findings, and old granulomatous disease. Comment: Preliminary interpretation made by [facility]. No critical discrepancy.
--- NOTE | 2021-11-29 08:39 | XRAY ---
Indication: Pain. Two-dimensional gallbladder sonogram performed. Comparison: None Pancreas not well-seen due to overlying bowel gas. Gallbladder normally distended with a few stones in the dependent portion, largest 2 cm. No abnormal gallbladder wall thickening or pericholecystic fluid. Common bile duct measures 6.1 mm. No intrahepatic biliary distention. Visualized liver and right kidney sonographically unremarkable. Right kidney measures 11.9 cm in length. No ascites. Impression: 1. Nonvisualization pancreas. 2. Cholelithiasis without cholecystitis or biliary distention.
== END 2021-11-29 08:20 | disposition home or self-care (01) ==
LOC: ED 03:24
DX: K80.20 Calculus of gallbladder without cholecystitis without obstruction (principal); K82.1 Hydrops of gallbladder; E27.8 Other specified disorders of adrenal gland; N28.89 Other specified disorders of kidney and ureter; N20.0 Calculus of kidney; K57.90 Diverticulosis of intestine, part unspecified, without perforation or abscess without bleeding; E87.6 Hypokalemia; R10.84 Generalized abdominal pain; I10 Essential (primary) hypertension; Z72.0 Tobacco use; Z79.899 Other long term (current) drug therapy
CPT/HCPCS: 36000; 36415; 74176; 76705; 80053; 81015; 82150; 83605; 83690; 85025; 87086; 93005; 96374; 96375; 99284; J1170; J2405; A9270-GY

== ENCOUNTER 2021-12-25 08:28 | Day surgery (SDC) | payer MEDICARE ==
[~2021-12-25 08:28] MED LIST: Lactated Ringers 1,000 ML IV ONE; Sensorcaine 0.25% 10 ML ONE
--- NOTE | 2021-12-25 08:35 | HP ---
DATE OF SURGERY: 12/25/2021 HISTORY OF PRESENT ILLNESS: The patient is a 71-year-old who has severe pain. He had a gallstone on CT scan. No change in bowel movements. No jaundice. No abdominal surgeries. No blood thinners in the past. He has gallstones in the gallbladder 2 cm in size, according to the ultrasound. PAST MEDICAL HISTORY: Hypertension, ankyloses, spondylosis. PAST SURGICAL HISTORY: Tonsillectomy in the past. MEDICATIONS: Blood pressure medication losartan hydrochlorothiazide, vitamin C, aspirin, calcium. ALLERGIES: NKDA. FAMILY HISTORY: Negative in regards to this problem. SOCIAL HISTORY: One half per day smoker. Seldom alcohol use. REVIEW OF SYSTEMS: Fourteen systems reviewed. Negative or noncontributory as above and per preadmission questionnaire. PHYSICAL EXAMINATION: GENERAL: No acute distress. HEENT: Sclerae nonicteric. NECK: No JVD. CHEST: Equal excursion, nonlabored breathing. CVS: Regular rate and rhythm. ABDOMEN: Soft. No peritoneal signs. EXTREMITIES: No significant edema. NEURO: Alert, oriented, moving extremities symmetrically. PSYCH: Appropriate mood and affect. SKIN: Dry. IMPRESSION: Acute exacerbation of chronic cholecystitis/cholelithiasis. I recommend cholecystectomy. I feel the patient is a candidate. Risks and benefits explained in detail including but not limited to bleeding or infection, risk of trocar injury or hernia, risk of bowel, bladder or blood vessel injury, risk of bile leak, bile duct injury, retained stone or sludge possibly requiring further procedure either open or ERCP, general risk of anesthesia, deep venous thrombosis, pulmonary embolism, pneumonia, perioperative risk of aches, pains, bloating, constipation and/or loose stools possibly even chronic in nature, possibly no improvement in his symptoms possibly requiring other testing or work up, possibility of open procedure but not limited, consent obtained. Will proceed with laparoscopic cholecystectomy possible open as an outpatient.
[2021-12-25] MEDS ORDERED: MEFOXIN 2 GM PREMIX** 2 GM/50 ML ML IV ONE (08:44)
[2021-12-25] MEDS ORDERED: Lactated Ringers 1,000 ML IV ONE (08:45)
[2021-12-25] MEDS ORDERED: MEFOXIN 2 GM PREMIX** 2 GM/50 ML ML IV SCH (09:00)
[2021-12-25] MEDS ORDERED: Lactated Ringers 1,000 ML IV SCH (09:00)
[2021-12-25 09:33] LABS: ALBUMIN 3.9 g/dL (3.5-5.0); ALKALINE PHOSPHATASE 84 U/L (38-126); ANION GAP 11.4 MEQ/L (5-15); BLOOD UREA NITROGEN 19 mg/dL (9-20); CHLORIDE 104 mmol/L (98-107); Calcium 9.4 mg/dL (8.4-10.2); Carbon Dioxide 30 mmol/L (22-30); Creatinine 1 0.66 mg/dL (0.66-1.25); EST GLOMERULAR FILTRATION RATE > 60.0 ML/MIN; Glucose 96 mg/dL (74-106); Potassium 3.6 mmol/L (3.5-5.1); SGOT/AST 23 U/L (17-59); SGPT/ALT 25 U/L (0-50); SODIUM 142 mmol/L (137-145); Total Protein 7.3 g/dL (6.3-8.2)
[2021-12-25 09:35] LABS: Absolute Neutrophil Ct (ANC) 2.52 (1.4-6.9); Basophil (Absolute #) 0.01 (0-0.4); Eosinophil % 5.3 % (0.00-5.0); Eosinophil (Absolute #) 0.18 (0-0.5); Hematocrit 44.6 % (42-50); Hemoglobin 14.5 gm/dl (12.5-18.0); Lymphocytes % 11.7 % (24.0-44.0); Mean Cell Volume 94.3 fl (78-100); Mean Corpuscular Hemoglobin 30.7 pg (26-32); Mean Corpuscular Hgb Concent. 32.5 g/dl (32-36); Mean Platelet Volume 9.4 fl (7.5-11.0); Monocyte (Absolute #) 0.31 (0.0-1.3); Monocytes % 9.1 % (0.0-12.0); Neutrophil % 73.6 % (36.0-66.0); Platelet Count 211 K/mm3 (150-450); Red Blood Count 4.73 M/mm3 (4.1-5.6); Red Cell Distribution Width 13.5 % (11.5-14.0); White Blood Count 3.4 K/mm3 (4.0-10.5)
[2021-12-25] MEDS ORDERED: Zemuron 100 MG/10 ML ONE ×2 (10:18→11:23)
[2021-12-25] MEDS ORDERED: DIPRIVAN 200 MG/20 ML IV ONE (10:18)
[2021-12-25] MEDS ORDERED: BRIDION 200MG/2ML IV ONE (10:18)
[2021-12-25] MEDS ORDERED: SUBLIMAZE 100 MCG/2 ML ONE (10:18)
[2021-12-25] MEDS ORDERED: TORAdol 30 mg Injection ONE (10:18)
[2021-12-25] MEDS ORDERED: Zofran 4 MG/2 ML VIAL ONE (10:18)
[2021-12-25] MEDS ORDERED: Decadron 4 MG INJ ONE (10:18)
[2021-12-25] MEDS ORDERED: Xylocaine-Mpf 2% 5 Ml Vial ONE (10:18)
[2021-12-25] MEDS ORDERED: Ephedrine Sulfate 50 MG/ML ONE (11:13)
[2021-12-25] MEDS ORDERED: ROBINUL ONE (11:23)
[2021-12-25] MEDS ORDERED: TRANDATE 20 MG/4 ML SYRINGE IV ONE (12:18)
[2021-12-25] MEDS ORDERED: MORPHINE SULFATE 10 MG/ML ONE (12:52)
[2021-12-25 15:25] VITALS: BP 128/76; PULSE 80; O2SAT 94
--- NOTE | 2021-12-26 09:58 | OP ---
SURGERY DATE/TIME: 12/25/2021 1056 PREOPERATIVE DIAGNOSIS: Acute exacerbation of chronic cholecystitis/cholelithiasis. POSTOPERATIVE DIAGNOSIS: Acute exacerbation of chronic cholecystitis/cholelithiasis, severe chronic cholecystitis. PROCEDURE: Laparoscopic cholecystectomy. SURGEON: Dr. Jose Luis Hart. ANESTHESIA: General. ESTIMATED BLOOD LOSS: Minimal. INDICATIONS: As noted above. Risks and benefits explained in detail but not limited to and consent obtained. DESCRIPTION OF PROCEDURE AND FINDINGS: The patient was taken to the operating room. General anesthesia induced. Abdomen prepped and draped in usual sterile fashion. After official time out and no disagreement with planned procedure, a transverse incision made at the supraumbilical area. Fascia grasped and pulled upward. Veress needle inserted and tested with saline. Pneumoperitoneum accomplished insufflating opening pressure of 0-15. A 5 mm bladeless port and camera were inserted without difficulty followed by two - 5 mm right upper quadrant ports and 11 mm epigastric port. The gallbladder is quite distended. It had omental adhesions stuck to the top of it where it had a large stone. It took some time but these are slowly and carefully taken down and dissected carefully posterior lateral to anterior fashion. The cystic duct and infundibular area carefully well skeletonized until critical view obtained both anteriorly and posteriorly. Once this is accomplished, the cystic duct clipped x3 and divided in the usual fashion. The cystic artery clipped x3 and divided in usual fashion. It was quite vascular requiring clipping additional oozing side branches off the cystic artery as necessary. Slowly and carefully dissected the body and the Magi's pouch retrieving the gallbladder staying directly on the gallbladder wall. The gallbladder became quite concrete and inflamed towards the top. It was very difficult but slowly and carefully staying directly on the gallbladder wall to keep some thick bile. The stone fragments were immediately suctioned and retrieved and passed off. The gallbladder slowly and carefully dissected free. The gallbladder wall kind of disintegrated. A 2 cm plus stone was removed earlier. The gallbladder wall was then slowly and carefully dissected free from its concrete attachment to the liver bed staying directly on the gallbladder wall, this was quite vascular and was finally able to be removed and placed in the provided sac along with the stones, pulled up into the epigastrium and enlarging slightly with a clamp it was pulled free and passed off. The port was replaced. Copious amount of irrigation accomplished lateral to the liver and subhepatic space until clear. Clips noted in place cystic duct and cystic artery stumps. There was a raw liver bed where the liver had been raw, had some oozing. It was felt it was best to leave a small piece of Surgicel in place. One little capsule ooze from retraction. Because of the spillage of bile and some stone fragments that had been retrieved, we washed out as well as possible. It was elected to leave a temporary BLAYNE drain to be taken out in the office. BLAYNE drain up in the subhepatic space out through lateral port incision. At this point, pneumoperitoneum decompressed. The fascial defect in the epigastrium that was enlarged was closed with running 0 Vicryl. The wound is irrigated out. Skin incision closed with 4-0 Vicryl. BLAYNE secured with PDS suture and placed to bulb suction. There were no immediate complications. It was a very difficult dissection given the extensive inflammation, very large stone and very vascular/friable gallbladder. He tolerated the procedure well. There were no immediate complications. There was no family out in the waiting area to discuss findings with at this time. I will see him back in the office next week to take the drain out.
== END 2021-12-25 15:45 | disposition home or self-care (01) ==
LOC: SDC 08:28
PROVIDERS: ATTEND Surgery
DX: K80.10 Calculus of gallbladder with chronic cholecystitis without obstruction (principal); I10 Essential (primary) hypertension
CPT/HCPCS: 36415; 80053; 85025; 93005; 99100; J0694; J1100; J1885; J2270; J2405; J2704; J3010

== ENCOUNTER 2024-03-30 08:08 | Day surgery (SDC) | payer MEDICARE ==
[~2024-03-30 08:08] MED LIST changes: -Sensorcaine 0.25% 10 ML ONE
[2024-03-30] MEDS: Lactated Ringers 1,000 ML IV SCH (08:11)
[2024-03-30 08:20] VITALS: RESP 18
[2024-03-30] MEDS ORDERED: Mylicon DROPS ONE (10:19)
[2024-03-30] MEDS ORDERED: DIPRIVAN 200 MG/20 ML IV ONE (10:41)
[2024-03-30 11:29] VITALS: O2SAT 99
[2024-03-30 11:45] VITALS: BP 113/70; PULSE 70; TEMP 97.3
--- NOTE | 2024-03-31 10:12 | OP ---
SURGERY DATE/TIME: 03/30/2024 1042 1108 PREOPERATIVE DIAGNOSIS: Needs screening colonoscopy. POSTOPERATIVE DIAGNOSES: 1) Pancolonic diverticulosis. 2) Small polyps, transverse colon and ascending colon. 3) Fair bowel prep. PROCEDURES: 1) Colonoscopy. 2) Hot biopsy polypectomy of transverse colon polyp. 3) Hot biopsy polypectomy of ascending colon polyp. SURGEON: Gil Hart MD ANESTHESIA: MAC. ESTIMATED BLOOD LOSS: Minimal. INDICATIONS: As above. Consent was obtained. DESCRIPTION OF PROCEDURE AND FINDINGS: Patient taken to the endoscopy room. MAC anesthesia induced after official time-out for planned procedure. Digital rectal exam did not reveal any rectal masses. Videocolonoscope was inserted and passed up through the tortuous sigmoid, descending, transverse, ascending colon, and around to the cecum. Appendiceal orifice and valve were well visualized and photo documented. Prep overall was fair. He did have a moderate tortuous colon, did require positioning on his back and external pressure but was able to be advanced to the cecum, confirming with the appendiceal orifice and ileocecal valve photodocumentation. There was some foamy stool and liquidy stool on the side With some Mylicon and some irrigation, the scope was slowly and carefully withdrawn. There were 2 small early polyps versus hyperplastic lesions in the ascending colon, proximal ascending colon removed with hot biopsy polypectomy. Good hemostasis noted. There was 1 polyp in the transverse colon, possibly an early adenoma which I biopsied, was removed with hot biopsy polypectomy. Good hemostasis noted. He did have pancolonic medium-sized diverticula, a little more concentrated over in the left colon. Scope was carefully withdrawn over the next 11 minutes. Again the 3 polyps had been removed. There were no signs of any large polyps, masses, or obstructing lesions. He had minimal internal hemorrhoids on retroflex. Scope was withdrawn. Patient tolerated the procedure well
--- NOTE | 2024-03-31 10:21 | HP ---
HISTORY AND PHYSICAL HISTORY OF PRESENT ILLNESS: No prior colonoscopy. No bloody stools. No change in bowel habits. No new pain. Family history negative for colon cancer. The patient is in need of screening colonoscopy. PAST MEDICAL HISTORY: Hypertension. HOME MEDICATIONS: Aspirin, potassium chloride, vitamin C, losartan. ALLERGIES: No known drug allergies. PAST SURGICAL HISTORY: Had cholecystectomy. SOCIAL HISTORY: A 2 pack-a-day smoker. No alcohol abuse. FAMILY HISTORY: NC as well as cancer. REVIEW OF SYSTEMS: Twelve systems reviewed. No chest pain or palpitations. Other systems negative or noncontributory as above and per preadmission questionnaire. PHYSICAL EXAMINATION: GENERAL: Height 5 feet 11 inches. BMI of 30. No acute distress. HEENT: Sclerae nonicteric. NECK: No JVD. CARDIOVASCULAR: Regular rate and rhythm. RESPIRATORY: Equal excursion, nonlabored breathing. ABDOMEN: Soft, nontender. SKIN: Dry. EXTREMITIES: No cyanosis. NEUROLOGIC: Alert. PSYCHIATRIC: Appropriate mood and affect. RECTAL: Deferred until diagnostic exam. IMPRESSION: Patient in need of screening colonoscopy. Shown the risk sheet and explained the procedure in detail including but not limited to bleeding or infection; risk of bowel injury or perforation, risk of misdiagnosis or nondiagnosis, risk of incomplete exam possibly requiring barium enema or other studies or procedure, general risk of sedation or anesthesia, risk of bowel prep but not limited to. Otherwise, continue medications for his hypertension.
== END 2024-03-30 11:48 | disposition home or self-care (01) ==
LOC: SDC 08:08
PROVIDERS: ATTEND Surgery
DX: Z12.11 Encounter for screening for malignant neoplasm of colon (principal); K57.30 Diverticulosis of large intestine without perforation or abscess without bleeding; K64.8 Other hemorrhoids; D12.2 Benign neoplasm of ascending colon
CPT/HCPCS: 99100; J2704; A9270-GY

== ENCOUNTER 2024-07-28 05:54 | Day surgery (SDC) | payer MEDICARE ==
[2024-07-28] MEDS ORDERED: Sodium Chloride 0.9% 10 ML FLUSH Syringe IJ ONE (06:00)
[2024-07-28] MEDS ORDERED: VIGAMOX/BSS 0.15% SYR IO ONE (06:00)
[2024-07-28] MEDS ORDERED: TRIAMCINOLONE 15 MG/ML INJ INTRAOP ONE (06:00)
[2024-07-28] MEDS ORDERED: BETADINE 5% OPHTHALMIC 30 ML OP ONE (06:00)
[2024-07-28 06:27] VITALS: RESP 18
[2024-07-28] MEDS: TETRACAINE 0.5% STERI-UNIT SOL OP ONE ×2 (06:31→07:00)
[2024-07-28] MEDS: Ak-Dilate OPHTHALMIC*** 1.065 ML, Cyclogyl 1% OPHTH SOL 1.065 ML, GATIFLOXACIN 0.5% OPH... OP ONE (06:38)
[2024-07-28] MEDS ORDERED: DEXMEDETOMIDINE 80 MCG/20ML-NS IV ONE (07:43)
[2024-07-28] MEDS ORDERED: DIPRIVAN 200 MG/20 ML IV ONE (07:43)
[2024-07-28] MEDS ORDERED: Zofran 4 MG/2 ML VIAL IV PRN (08:00)
[2024-07-28] MEDS ORDERED: Epinephrine Preservative Free 1 MG/ML IJ ONE (08:00)
[2024-07-28 08:25] VITALS: TEMP 97.7
[2024-07-28] MEDS: ACETAZOLAMIDE 250 MG TABLET PO ONE (08:26)
[2024-07-28 08:38] VITALS: BP 158/70; PULSE 77; O2SAT 96
== END 2024-07-28 08:50 | disposition home or self-care (01) ==
LOC: SDC 05:54
PROVIDERS: ATTEND Ophthalmology
DX: H25.812 Combined forms of age-related cataract, left eye (principal)
CPT/HCPCS: C1780; J0171; J2704; A9270-GY

== ENCOUNTER 2024-09-01 05:56 | Day surgery (SDC) | payer MEDICARE ==
[2024-09-01] MEDS ORDERED: Epinephrine Preservative Free 1 MG/ML IJ ONE (05:57)
[2024-09-01] MEDS ORDERED: DEXMEDETOMIDINE 80 MCG/20ML-NS IV ONE (05:57)
[2024-09-01] MEDS ORDERED: TRIAMCINOLONE 15 MG/ML INJ INTRAOP ONE (06:00)
[2024-09-01] MEDS ORDERED: Sodium Chloride 0.9% 10 ML FLUSH Syringe IJ ONE (06:00)
[2024-09-01] MEDS ORDERED: VIGAMOX/BSS 0.15% SYR IO ONE (06:00)
[2024-09-01] MEDS ORDERED: BETADINE 5% OPHTHALMIC 30 ML OP ONE (06:00)
[2024-09-01] MEDS: TETRACAINE 0.5% STERI-UNIT SOL OP ONE ×2 (06:25→07:14)
[2024-09-01] MEDS: Ak-Dilate OPHTHALMIC*** 1.065 ML, Cyclogyl 1% OPHTH SOL 1.065 ML, GATIFLOXACIN 0.5% OPH... OP ONE (06:26)
[2024-09-01 06:42] LABS: ANION GAP 8.1 MEQ/L (5-15); Calcium 9.3 mg/dL (8.4-10.2); Creatinine 1 0.99 mg/dL (0.66-1.25); EST GLOMERULAR FILTRATION RATE 79.4 ML/MIN; Potassium 3.9 mmol/L (3.5-5.1)
[2024-09-01] MEDS ORDERED: Zofran 4 MG/2 ML VIAL IV PRN (08:15)
[2024-09-01] MEDS ORDERED: propofoL IV ONE (09:31)
[2024-09-01] MEDS: ACETAZOLAMIDE 250 MG TABLET PO ONE (09:54)
[2024-09-01 09:57] VITALS: RESP 16
[2024-09-01 10:09] VITALS: BP 139/82; PULSE 83; TEMP 98.7; O2SAT 96
== END 2024-09-01 10:15 | disposition home or self-care (01) ==
LOC: SDC 05:56
PROVIDERS: ATTEND Ophthalmology
DX: H25.811 Combined forms of age-related cataract, right eye (principal); I10 Essential (primary) hypertension
CPT/HCPCS: 36415; 80048; 93005; C1780; J0171; J2704; A9270-GY